=== PATIENT | female | born 1930 | race Caucasian/White ===

== ENCOUNTER 2017-01-29 20:27 | Inpatient (IN) | payer OTHER ==
[~2017-01-29] VITALS: Ht 162.6 cm; Wt 75.3 kg
[~2017-01-29 20:27] MED LIST: ADVAIR HFA120 INHAL2 IH; ADVAIR HFA120 INHALA IH; AMLODIPINE BESY10 MG PO; ASPIR-LOW81 MG PO; ASPIRIN BUFFER325 MG PO; ASPIRIN E.C.81 M1 PO; ASPIRIN81 M1 PO; DIABETA,MICRON2.5 MG PO; DOXYCYCLINE HY100 MG PO; DUONEB 2.5-0.5 M3 ML AEROSOL; Diabeta,Micronase PO; ELIQUIS2.5 MG PO; ENDOCET 5-3251 EACH PO; FEOSOL45 MG PO; FUROSEMIDE20 MG PO; FUROSEMIDE40 MG PO; GLUCAGEN1 MG IM/SC; GLUCOTROL XL5 MG PO; GLUCOTROL5 MG PO; GLYBURIDE5 MG PO; K-DUR10 MEQ PO; K-DUR20 MEQ PO; Keflex PO; LANTUS 3 M100 UNITS/ SC; LANTUS 3 M100 UNITS1 SC; LASIX40 MG PO; LITE COAT ASPI325 M1 PO; LOVENOX30 MG/0.3 SC; Lasix PO; Lopressor PO; MAG-AL PLUS SUS30 ML PO; METOPROLOL SUC100 MG PO; NORVASC10 MG PO; NOVOLOG MI100 UNIT/M SC; NOVOLOG PE100 UNITS/ SC; PANTOPRAZOLE SO40 MG PO; POTASSIUM CHLO20 ME1 PO; PRILOSEC20 MG PO; PriLOSEC PO; SENOKOT S,PE1 TABLET PO; SSD25GM TP; THERAGRAN1 TABLET PO; TYLENOL REGULA325 MG PO; VITAMIN D1000 INTUN PO; VITAMIN D2000 UNIT PO; Vicodin,Norco 5/325 PO; ZESTORETIC,P1 TABLE1 PO; Zestoretic,Prinzide PO
[2017-01-29 21:34] LABS: EOSINOPHIL (%) 0.1 % (0-5); HEMATOCRIT 29.7 % (36.0-46.0); IMMATURE GRANULOCYTE (%) 0.6 % (0.0-0.7); IMMATURE GRANULOCYTE COUNT 0.1 K/uL; INSTRUMENT ABS NEUTROPHIL CT 17.4 K/uL; LYMPHOCYTE COUNT 1.1 K/uL (1.0-2.8); MCH 26.6 PG (29.0-34.0); MCHC 31.6 G/DL (30.0-36.0); MCV 83.9 FL (83-99); MEAN PLAT.VOLUME 9.1 uM^3 (9.5-12.4); MONOCYTE (%) 4.9 % (3-12); NEUTROPHIL (%) 88.8 % (45-76); NEUTROPHIL COUNT 17.4 K/uL (1.8-6.4); PLATELET COUNT 294 K/uL (156-360); RBC DIS.WIDTH-SD 49.1 % (39-53); RED BLOOD COUNT 3.54 M/uL (3.80-5.20); WHITE BLOOD COUNT 19.6 K/uL (4.1-10.2)
[2017-01-29 21:41] LABS: CHLORIDE 97 mEq/L (99-109); POTASSIUM 4.4 mEq/L (3.7-5.4); SODIUM 131 mEq/L (136-147)
[2017-01-29 21:43] LABS: GLUCOSE 316 mg/dL (70-99)
[2017-01-29 21:44] LABS: ANION GAP 8 MEQ/L (2-14)
[2017-01-29 21:47] LABS: GFR ESTIMATE (CALCULATED) 35 mL/min/
[2017-01-29 21:48] LABS: UREA NITROGEN (BUN) 27 mg/dL (9-23)
[2017-01-29] MEDS ORDERED: FUROSEMIDE40 MG PO (22:03)
[2017-01-29] MEDS ORDERED: AMLODIPINE BESY10 MG PO (22:03)
[2017-01-29] MEDS ORDERED: LITE COAT ASPI325 M1 PO (22:03)
[2017-01-29] MEDS ORDERED: PRILOSEC OTC20 MG PO (22:04)
[2017-01-30 01:59] VITALS: BP 178/86
[2017-01-30 02:00] VITALS: BP 166/78
[2017-01-30 04:33] VITALS: BP 163/71
[2017-01-30 05:53] LABS: POINT-OF-CARE METER ID UU14162508
[2017-01-30 06:55] VITALS: BP 156/72
[2017-01-30 11:30] VITALS: BP 146/68
[2017-01-30 11:48] LABS: POINT-OF-CARE METER ID UU14162508
[2017-01-30 23:09] VITALS: BP 150/67
[2017-01-31 06:22] LABS: ANION GAP 6 MEQ/L (2-14); CHLORIDE 101 MEQ/L (99-109); GFR ESTIMATE (CALCULATED) 38 mL/min/; SAMPLE HEMOLYSIS CHECK 0; SAMPLE ICTERIC CHECK 0; SAMPLE LIPEMIA CHECK 0; UREA NITROGEN (BUN) 24 mg/dL (9-23)
[2017-01-31 06:29] LABS: EOSINOPHIL COUNT 0.2 K/uL (0-0.3); GLUCOSE 73 mg/dL (70-99); HEMATOCRIT 26.4 % (36.0-46.0); IMMATURE GRANULOCYTE (%) 0.5 % (0.0-0.7); INSTRUMENT ABS NEUTROPHIL CT 4.5 K/uL; LYMPHOCYTE COUNT 1.9 K/uL (1.0-2.8); MCHC 31.1 G/DL (30.0-36.0); MCV 86.8 FL (83-99); MEAN PLAT.VOLUME 9.2 uM^3 (9.5-12.4); MONOCYTE COUNT 0.8 K/uL (0-0.8); NEUTROPHIL (%) 60.9 % (45-76); NEUTROPHIL COUNT 4.5 K/uL (1.8-6.4); PLATELET COUNT 265 K/uL (156-360); RBC DIS.WIDTH-CV 16.1 % (11.8-14.6); RBC DIS.WIDTH-SD 50.8 % (39-53); RED BLOOD COUNT 3.04 M/uL (3.80-5.20); SODIUM 140 MEQ/L (136-147)
[2017-01-31 07:05] LABS: Estimated Average Glucose 217 mg/dL (70-123); HEMOGLOBIN A1c (GLYCOHEMOGLOB) 9.2 % HGB (Below 5.7)
[2017-01-31 07:06] LABS: WHITE BLOOD COUNT 7.4 K/uL (4.1-10.2)
[2017-01-31 07:58] VITALS: BP 168/72
[2017-01-31 12:08] LABS: POINT-OF-CARE METER ID UU14162508
[2017-01-31 16:11] VITALS: BP 174/77
[2017-01-31 16:31] LABS: POINT-OF-CARE METER ID UU14162508
[2017-02-01 00:01] VITALS: BP 165/77
[2017-02-01 07:38] LABS: POINT-OF-CARE METER ID UU14162508
[2017-02-01 07:58] VITALS: BP 158/70
[2017-02-01 11:21] LABS: POINT-OF-CARE METER ID UU14162508
[2017-02-01 12:00] VITALS: BP 183/77
[2017-02-01 15:48] VITALS: BP 191/80
[2017-02-01 15:52] LABS: POINT-OF-CARE METER ID UU14162508
[2017-02-01 23:41] VITALS: BP 173/73
[2017-02-01 23:42] LABS: POINT-OF-CARE METER ID UU14162508
[2017-02-02 07:12] VITALS: BP 166/74
[2017-02-02 12:12] LABS: POINT-OF-CARE METER ID UU14162508
[2017-02-02 16:19] LABS: POINT-OF-CARE METER ID UU14162508
[2017-02-02 16:27] VITALS: BP 176/70
[2017-02-02] MEDS ORDERED: VALSARTAN160 MG PO (20:02)
[2017-02-02] MEDS ORDERED: SANTYL30 GM TP (20:03)
[2017-02-02] MEDS ORDERED: KEFLEX500 MG PO (20:07)
[2017-02-02 23:28] VITALS: BP 169/83
[2017-02-03 07:00] VITALS: BP 176/82
[2017-02-03 10:55] VITALS: BP 172/84
== END 2017-02-03 12:55 | disposition home health service (06) | DRG 623 ==
LOC: EME → EDBD 20:27 → EME 20:27 → EDOF 01-30 00:02 → 2EAST 01-30 00:02
PROVIDERS: Emergency Medicine; Family Medicine Sports Medicine
DX: E11.628 Type 2 diabetes mellitus with other skin complications (principal); L03.115 Cellulitis of right lower limb; L03.116 Cellulitis of left lower limb; E11.622 Type 2 diabetes mellitus with other skin ulcer; L97.919 Non-pressure chronic ulcer of unspecified part of right lower leg with unspecified severity; L97.929 Non-pressure chronic ulcer of unspecified part of left lower leg with unspecified severity; L97.429 Non-pressure chronic ulcer of left heel and midfoot with unspecified severity; S90.32XA Contusion of left foot, initial encounter; L89.150 Pressure ulcer of sacral region, unstageable; I25.10 Atherosclerotic heart disease of native coronary artery without angina pectoris; I12.9 Hypertensive chronic kidney disease with stage 1 through stage 4 chronic kidney disease, or unspecified chronic kidney disease; N18.3 Chronic kidney disease, stage 3 (moderate); E11.22 Type 2 diabetes mellitus with diabetic chronic kidney disease; R11.2 Nausea with vomiting, unspecified; Z86.73 Personal history of transient ischemic attack (TIA), and cerebral infarction without residual deficits; I48.91 Unspecified atrial fibrillation; I83.018 Varicose veins of right lower extremity with ulcer other part of lower leg; I83.028 Varicose veins of left lower extremity with ulcer other part of lower leg; I83.024 Varicose veins of left lower extremity with ulcer of heel and midfoot; Z66 Do not resuscitate; Z51.5 Encounter for palliative care; K21.9 Gastro-esophageal reflux disease without esophagitis; E78.5 Hyperlipidemia, unspecified; D64.9 Anemia, unspecified; M19.90 Unspecified osteoarthritis, unspecified site; Z79.82 Long term (current) use of aspirin; Z91.19 Patient's noncompliance with other medical treatment and regimen; Z79.4 Long term (current) use of insulin; Z86.14 Personal history of Methicillin resistant Staphylococcus aureus infection; Z89.422 Acquired absence of other left toe(s)
CPT/HCPCS: 71020; 80048; 80202; 82948; 83036; 83605; 83880; 85025; 87040; 93005; 94799; 99281; 99284; J0690; J0696; J1650; J1815; J2405; J3370; J7050

== ENCOUNTER 2017-03-08 12:15 | Inpatient (IN) | payer OTHER ==
[2017-03-08] VITALS (8 sets, daily range): BP systolic 130–193; BP diastolic 57–100
[~2017-03-08] VITALS: Ht 162.6 cm; Wt 79.4 kg
[~2017-03-08 12:15] MED LIST changes: +KEFLEX500 MG PO; +PRILOSEC OTC20 MG PO; +SANTYL30 GM TP; +VALSARTAN160 MG PO
[2017-03-08 12:52] LABS: POINT-OF-CARE METER ID UU14100415
[2017-03-08 12:57] LABS: HEMATOCRIT 35.3 % (36.0-46.0); MCH 27.5 PG (29.0-34.0); MCHC 32.3 G/DL (30.0-36.0); MCV 85.3 FL (83-99); MEAN PLAT.VOLUME 9.9 uM^3 (9.5-12.4); PLATELET COUNT 217 K/uL (156-360); RBC DIS.WIDTH-CV 16.8 % (11.8-14.6); RBC DIS.WIDTH-SD 52.8 % (39-53); RED BLOOD COUNT 4.14 M/uL (3.80-5.20)
[2017-03-08 12:59] LABS: WHITE BLOOD COUNT 19.4 K/uL (4.1-10.2)
[2017-03-08 13:13] LABS: CHLORIDE 95 mEq/L (99-109); POTASSIUM 4.3 mEq/L (3.7-5.4); SODIUM 138 mEq/L (136-147)
[2017-03-08 13:15] LABS: GLUCOSE 257 mg/dL (70-99)
[2017-03-08 13:16] LABS: ANION GAP 14 MEQ/L (2-14)
[2017-03-08 13:18] LABS: ALKALINE PHOSPHATASE 123 IU/L (3-129)
[2017-03-08 13:19] LABS: GFR ESTIMATE (CALCULATED) 19 mL/min/
[2017-03-08 13:20] LABS: UREA NITROGEN (BUN) 52 mg/dL (9-23)
[2017-03-08 13:29] LABS: TROP-I INTERPRETATION POSITIVE; TROPONIN-I 0.89 ng/mL (0.0-0.30)
[2017-03-08 13:53] LABS: ADD MIUA? YES; BILIRUBIN NEGATIVE; BLOOD NEGATIVE; COLOR YELLOW ((YELLOW)); GLUCOSE (STRIP) >=500; KETONES NEGATIVE; LEUKOCYTES NEGATIVE; NITRITE NEGATIVE; PROTEIN (STRIP) >=500; SPECIFIC GRAVITY 1.013 (1.000-1.030)
[2017-03-08 14:11] LABS: BACTERIA NONE SEEN /HPF; EPITHELIAL CELLS RARE /HPF; MUCUS TRACE /LPF; RED BLOOD CELLS 0-5 /HPF (0-5); UCUL ADDED? NO; WHITE BLOOD CELLS 0-5 /HPF (0-5)
[2017-03-08 14:22] LABS: EOSINOPHIL (%) 0 % (0-5); IMMATURE GRANULOCYTE (%) 0.8 % (0.0-0.7); IMMATURE GRANULOCYTE COUNT 0.2 K/uL; INSTRUMENT ABS NEUTROPHIL CT 15.7 K/uL; LYMPHOCYTE COUNT 2.3 K/uL (1.0-2.8); MONOCYTE (%) 5.8 % (3-12); MONOCYTE COUNT 1.1 K/uL (0-0.8); NEUTROPHIL (%) 81.3 % (45-76); NEUTROPHIL COUNT 15.7 K/uL (1.8-6.4)
[2017-03-08 14:35] LABS: INTER. NORMALIZED RATIO 1.3; PROTHROMBIN TIME 13.5 (9.2-11.2); PTT 34.8 (25-32)
[2017-03-08] MEDS ORDERED: VALSARTAN160 MG PO (15:06)
[2017-03-08 21:24] LABS: POINT-OF-CARE METER ID UU13113781
[2017-03-09 00:29] VITALS: BP 130/88
[2017-03-09 01:56] LABS: TROP-I INTERPRETATION INDETERMINATE; TROPONIN-I 0.57 ng/mL (0.0-0.30)
[2017-03-09 04:48] VITALS: BP 158/83
[2017-03-09 05:38] LABS: TROP-I INTERPRETATION INDETERMINATE; TROPONIN-I 0.54 ng/mL (0.0-0.30)
[2017-03-09 06:15] LABS: HEMATOCRIT 32.4 % (36.0-46.0); MCH 27.9 PG (29.0-34.0); MCHC 32.1 G/DL (30.0-36.0); MCV 86.9 FL (83-99); MEAN PLAT.VOLUME 10.1 uM^3 (9.5-12.4); PLATELET COUNT 196 K/uL (156-360); RBC DIS.WIDTH-SD 54.5 % (39-53); RED BLOOD COUNT 3.73 M/uL (3.80-5.20)
[2017-03-09 06:16] LABS: WHITE BLOOD COUNT 11.6 K/uL (4.1-10.2)
[2017-03-09 07:00] LABS: ANION GAP 14 MEQ/L (2-14); CHLORIDE 98 MEQ/L (99-109); GFR ESTIMATE (CALCULATED) 19 mL/min/; HDL CHOLESTEROL 47 MG/DL (Desirable>=50); LDL CHOLESTEROL 100 mg/dL (Desirable<100); NON-HDL CHOLESTEROL 120 mg/dL (Desirable<160); POTASSIUM 3.5 MEQ/L (3.7-5.4); SAMPLE HEMOLYSIS CHECK 0; SAMPLE ICTERIC CHECK 0; SAMPLE LIPEMIA CHECK 0; SODIUM 140 MEQ/L (136-147); TOTAL CHOLESTEROL 167 mg/dL (Desirable<200); TRIGLYCERIDES 101 MG/DL (Normal: <150); UREA NITROGEN (BUN) 54 mg/dL (9-23)
[2017-03-09 07:01] LABS: GLUCOSE 102 mg/dL (70-99)
[2017-03-09 08:06] LABS: POINT-OF-CARE METER ID UU14174216
[2017-03-09 09:00] VITALS: BP 178/108
[2017-03-09 11:18] LABS: POINT-OF-CARE METER ID UU14174216
[2017-03-09 13:56] LABS: TROP-I INTERPRETATION INDETERMINATE; TROPONIN-I 0.36 ng/mL (0.0-0.30)
[2017-03-09 16:44] LABS: POINT-OF-CARE METER ID UU14174216
[2017-03-09 17:00] VITALS: BP 177/72
[2017-03-09 20:45] VITALS: BP 119/78; BP 179/78
[2017-03-09 23:37] VITALS: BP 151/84
[2017-03-10] VITALS (7 sets, daily range): BP systolic 137–193; BP diastolic 48–97
[2017-03-10 08:06] LABS: POINT-OF-CARE METER ID UU14174216; POINT-OF-CARE USER ID ENVKC36
[2017-03-10 08:08] LABS: EOSINOPHIL (%) 0.8 % (0-5); EOSINOPHIL COUNT 0.1 K/uL (0-0.3); HEMATOCRIT 32.1 % (36.0-46.0); IMMATURE GRANULOCYTE (%) 0.3 % (0.0-0.7); INSTRUMENT ABS NEUTROPHIL CT 4.3 K/uL; LYMPHOCYTE COUNT 2.3 K/uL (1.0-2.8); MCH 27.9 PG (29.0-34.0); MCHC 31.8 G/DL (30.0-36.0); MCV 87.7 FL (83-99); MEAN PLAT.VOLUME 10.1 uM^3 (9.5-12.4); MONOCYTE (%) 7.4 % (3-12); MONOCYTE COUNT 0.5 K/uL (0-0.8); NEUTROPHIL COUNT 4.3 K/uL (1.8-6.4); PLATELET COUNT 200 K/uL (156-360); RBC DIS.WIDTH-CV 16.8 % (11.8-14.6); RBC DIS.WIDTH-SD 54.7 % (39-53); RED BLOOD COUNT 3.66 M/uL (3.80-5.20)
[2017-03-10 08:14] LABS: WHITE BLOOD COUNT 7.2 K/uL (4.1-10.2)
[2017-03-10 08:22] LABS: ANION GAP 8 MEQ/L (2-14); CHLORIDE 104 MEQ/L (99-109); GFR ESTIMATE (CALCULATED) 21 mL/min/; SAMPLE HEMOLYSIS CHECK 0; SAMPLE ICTERIC CHECK 0; SAMPLE LIPEMIA CHECK 0; SODIUM 140 MEQ/L (136-147); UREA NITROGEN (BUN) 52 mg/dL (9-23)
[2017-03-10 08:27] LABS: GLUCOSE 71 mg/dL (70-99); POTASSIUM 4.4 MEQ/L (3.7-5.4)
[2017-03-10 12:12] LABS: POINT-OF-CARE METER ID UU13113781; POINT-OF-CARE USER ID ENVKC36
[2017-03-10 16:50] LABS: POINT-OF-CARE METER ID UU14174216; POINT-OF-CARE USER ID ENVKC36
[2017-03-10 21:25] LABS: POINT-OF-CARE METER ID UU14174216
[2017-03-11 00:24] VITALS: BP 192/76
[2017-03-11 04:14] VITALS: BP 184/83
[2017-03-11 06:24] LABS: HEMATOCRIT 33.1 % (36.0-46.0); MCH 26.8 PG (29.0-34.0); MCHC 31.1 G/DL (30.0-36.0); MEAN PLAT.VOLUME 10.2 uM^3 (9.5-12.4); PLATELET COUNT 180 K/uL (156-360); RBC DIS.WIDTH-CV 16.6 % (11.8-14.6); RBC DIS.WIDTH-SD 52.6 % (39-53); RED BLOOD COUNT 3.85 M/uL (3.80-5.20)
[2017-03-11 06:25] LABS: WHITE BLOOD COUNT 4.3 K/uL (4.1-10.2)
[2017-03-11 06:49] LABS: CHLORIDE 109 mEq/L (99-109); POTASSIUM 4.1 mEq/L (3.7-5.4); SODIUM 140 mEq/L (136-147)
[2017-03-11 06:52] LABS: ANION GAP 11 MEQ/L (2-14)
[2017-03-11 06:53] LABS: GLUCOSE 211 mg/dL (70-99)
[2017-03-11 06:55] LABS: GFR ESTIMATE (CALCULATED) 27 mL/min/
[2017-03-11 06:56] LABS: UREA NITROGEN (BUN) 41 mg/dL (9-23)
[2017-03-11 07:25] VITALS: BP 164/68
[2017-03-11 07:43] LABS: POINT-OF-CARE METER ID UU13113781
[2017-03-11 11:16] LABS: POINT-OF-CARE METER ID UU14174216
[2017-03-11 11:30] VITALS: BP 151/60
[2017-03-11 16:08] VITALS: BP 150/60
[2017-03-11 16:09] LABS: POINT-OF-CARE METER ID UU14174216
[2017-03-11 19:43] VITALS: BP 128/52
[2017-03-11 21:16] LABS: POINT-OF-CARE METER ID UU13113781
[2017-03-12] VITALS (8 sets, daily range): BP systolic 134–185; BP diastolic 56–98
[2017-03-12 07:33] LABS: POINT-OF-CARE METER ID UU13113781
[2017-03-12 11:24] LABS: POINT-OF-CARE METER ID UU14174216
[2017-03-12 16:28] LABS: POINT-OF-CARE METER ID UU14174216
[2017-03-12 20:40] LABS: POINT-OF-CARE METER ID UU14174216
[2017-03-13 03:52] VITALS: BP 160/64
[2017-03-13 06:19] LABS: EOSINOPHIL (%) 3.4 % (0-5); EOSINOPHIL COUNT 0.2 K/uL (0-0.3); HEMATOCRIT 32.9 % (36.0-46.0); IMMATURE GRANULOCYTE (%) 1.1 % (0.0-0.7); IMMATURE GRANULOCYTE COUNT 0.1 K/uL; INSTRUMENT ABS NEUTROPHIL CT 2.1 K/uL; LYMPHOCYTE COUNT 1.9 K/uL (1.0-2.8); MCH 27.7 PG (29.0-34.0); MCHC 31.6 G/DL (30.0-36.0); MCV 87.5 FL (83-99); MEAN PLAT.VOLUME 9.6 uM^3 (9.5-12.4); MONOCYTE (%) 9.7 % (3-12); MONOCYTE COUNT 0.5 K/uL (0-0.8); NEUTROPHIL (%) 44.8 % (45-76); NEUTROPHIL COUNT 2.1 K/uL (1.8-6.4); PLATELET COUNT 182 K/uL (156-360); RBC DIS.WIDTH-CV 16.5 % (11.8-14.6); RBC DIS.WIDTH-SD 52.8 % (39-53); RED BLOOD COUNT 3.76 M/uL (3.80-5.20); WHITE BLOOD COUNT 4.8 K/uL (4.1-10.2)
[2017-03-13 06:50] LABS: ANION GAP 5 MEQ/L (2-14); CHLORIDE 109 MEQ/L (99-109); GFR ESTIMATE (CALCULATED) 32 mL/min/; POTASSIUM 4.4 MEQ/L (3.7-5.4); SAMPLE HEMOLYSIS CHECK 0; SAMPLE ICTERIC CHECK 0; SAMPLE LIPEMIA CHECK 0; SODIUM 140 MEQ/L (136-147); UREA NITROGEN (BUN) 29 mg/dL (9-23)
[2017-03-13 06:52] LABS: GLUCOSE 77 mg/dL (70-99)
[2017-03-13 07:12] VITALS: BP 134/68
[2017-03-13 07:40] LABS: POINT-OF-CARE METER ID UU14174216
[2017-03-13 08:22] LABS: POINT-OF-CARE METER ID UU14174216
[2017-03-13 11:24] LABS: POINT-OF-CARE METER ID UU14174216
[2017-03-13 12:12] VITALS: BP 167/76
[2017-03-13 16:12] LABS: POINT-OF-CARE METER ID UU14174216
[2017-03-13 16:19] VITALS: BP 161/70
[2017-03-13 20:18] VITALS: BP 150/62
[2017-03-13 21:35] LABS: POINT-OF-CARE METER ID UU13113781
[2017-03-13 23:45] VITALS: BP 140/66
[2017-03-14 04:23] VITALS: BP 162/70
[2017-03-14 07:15] VITALS: BP 149/72
[2017-03-14 11:31] LABS: POINT-OF-CARE METER ID UU13113781
[2017-03-14 11:33] VITALS: BP 174/79
[2017-03-14 16:51] VITALS: BP 169/78
[2017-03-14 20:30] VITALS: BP 170/77
[2017-03-14 20:46] LABS: POINT-OF-CARE USER ID ENVMNS
[2017-03-14 22:00] VITALS: BP 115/84
[2017-03-15] MEDS ORDERED: AMLODIPINE BESY10 MG PO (10:13)
[2017-03-15] MEDS ORDERED: NITROSTAT0.4 MG SL (10:13)
[2017-03-15] MEDS ORDERED: APRESOLINE50 MG PO (10:13)
[2017-03-15] MEDS ORDERED: TYLENOL REGULA325 MG PO (10:14)
[2017-03-15] MEDS ORDERED: ASPIR-LOW81 MG PO (10:14)
[2017-03-15] MEDS ORDERED: KLOR-CON M1010 MEQ PO (10:14)
[2017-03-15] MEDS ORDERED: VALSARTAN160 MG PO (10:14)
[2017-03-15 11:18] VITALS: BP 125/58
== END 2017-03-15 17:35 | DRG 280 ==
LOC: EME 12:15 → 4EAST 15:25 → EDOF 15:25 → 4EAST 19:43 → 5EAST 03-14 21:57
PROVIDERS: Emergency Medicine; Family Medicine Sports Medicine
DX: I21.4 Non-ST elevation (NSTEMI) myocardial infarction (principal); I48.0 Paroxysmal atrial fibrillation; I25.10 Atherosclerotic heart disease of native coronary artery without angina pectoris; E11.22 Type 2 diabetes mellitus with diabetic chronic kidney disease; E86.0 Dehydration; N18.3 Chronic kidney disease, stage 3 (moderate); I13.0 Hypertensive heart and chronic kidney disease with heart failure and stage 1 through stage 4 chronic kidney disease, or unspecified chronic kidney disease; Z86.73 Personal history of transient ischemic attack (TIA), and cerebral infarction without residual deficits; K21.9 Gastro-esophageal reflux disease without esophagitis; Z89.422 Acquired absence of other left toe(s); Z91.19 Patient's noncompliance with other medical treatment and regimen; I87.8 Other specified disorders of veins; N17.9 Acute kidney failure, unspecified; E78.5 Hyperlipidemia, unspecified; I50.9 Heart failure, unspecified; D64.9 Anemia, unspecified; R09.02 Hypoxemia; M19.90 Unspecified osteoarthritis, unspecified site; I08.3 Combined rheumatic disorders of mitral, aortic and tricuspid valves; I50.33 Acute on chronic diastolic (congestive) heart failure
CPT/HCPCS: 71020; 74230; 76705; 80048; 80053; 80061; 81003; 82948; 83605; 83880; 84484; 85025; 85027; 85610; 85730; 92526 GN; 92611 GN; 93005; 93306; 94799; 99281; 99285; J0360; J1644; J1815; J2405; J3480; J7030

== ENCOUNTER 2017-08-26 21:43 | Inpatient (IN) | payer OTHER ==
[~2017-08-26] VITALS: Ht 160 cm; Wt 75.8 kg
[~2017-08-26 21:43] MED LIST changes: +APRESOLINE50 MG PO; +KLOR-CON M1010 MEQ PO; +NITROSTAT0.4 MG SL
[2017-08-26 23:33] LABS: CARBON DIOXIDE (BICARBONATE) 35.5 MEQ/L (20-31)
[2017-08-26 23:34] LABS: EOSINOPHIL (%) 0 % (0-5); HEMATOCRIT 28.1 % (36.0-46.0); IMMATURE GRANULOCYTE (%) 0.4 % (0.0-0.7); IMMATURE GRANULOCYTE COUNT 0.1 K/uL; INSTRUMENT ABS NEUTROPHIL CT 14.3 K/uL; LYMPHOCYTE COUNT 0.6 K/uL (1.0-2.8); MCH 26.8 PG (29.0-34.0); MCHC 31.3 G/DL (30.0-36.0); MCV 85.7 FL (83-99); MEAN PLAT.VOLUME 9.1 uM^3 (9.5-12.4); MONOCYTE (%) 7.3 % (3-12); MONOCYTE COUNT 1.2 K/uL (0-0.8); NEUTROPHIL (%) 88.4 % (45-76); NEUTROPHIL COUNT 14.3 K/uL (1.8-6.4); PLATELET COUNT 419 K/uL (156-360); RBC DIS.WIDTH-CV 14.9 % (11.8-14.6); RBC DIS.WIDTH-SD 46.7 % (39-53); RED BLOOD COUNT 3.28 M/uL (3.80-5.20); WHITE BLOOD COUNT 16.2 K/uL (4.1-10.2)
[2017-08-26 23:38] LABS: INTER. NORMALIZED RATIO 1.5; PROTHROMBIN TIME 17.1 SEC (10.2-12.9)
[2017-08-26 23:41] LABS: PTT 28.2 SEC (25-37)
[2017-08-26 23:54] LABS: CHLORIDE 96 mEq/L (99-109); POTASSIUM 4.5 mEq/L (3.7-5.4); SODIUM 135 mEq/L (136-147)
[2017-08-26 23:57] LABS: GLUCOSE 224 mg/dL (70-99)
[2017-08-26 23:58] LABS: ANION GAP 11 MEQ/L (2-14); TOTAL BILIRUBIN 0.7 mg/dL (0.0-1.0)
[2017-08-27] VITALS (7 sets, daily range): BP systolic 116–141; BP diastolic 56–66
[2017-08-27] LABS: ALKALINE PHOSPHATASE 216 IU/L (3-129); GFR ESTIMATE (CALCULATED) 30 mL/min/
[2017-08-27 00:01] LABS: UREA NITROGEN (BUN) 26 mg/dL (9-23)
[2017-08-27 00:03] LABS: LIPASE 3 U/L (1.0-51.0)
[2017-08-27 07:18] LABS: Estimated Average Glucose 220 mg/dL (70-123)
[2017-08-27 07:24] LABS: EOSINOPHIL (%) 0 % (0-5); HEMATOCRIT 22.9 % (36.0-46.0); IMMATURE GRANULOCYTE (%) 0.5 % (0.0-0.7); IMMATURE GRANULOCYTE COUNT 0.1 K/uL; INSTRUMENT ABS NEUTROPHIL CT 13.4 K/uL; LYMPHOCYTE COUNT 1.6 K/uL (1.0-2.8); MCH 27.1 PG (29.0-34.0); MCHC 31.9 G/DL (30.0-36.0); MCV 85.1 FL (83-99); MEAN PLAT.VOLUME 9.4 uM^3 (9.5-12.4); MONOCYTE COUNT 1.3 K/uL (0-0.8); NEUTROPHIL (%) 81.5 % (45-76); NEUTROPHIL COUNT 13.4 K/uL (1.8-6.4); PLATELET COUNT 341 K/uL (156-360); RBC DIS.WIDTH-CV 15.2 % (11.8-14.6); RBC DIS.WIDTH-SD 46.5 % (39-53); RED BLOOD COUNT 2.69 M/uL (3.80-5.20); WHITE BLOOD COUNT 16.4 K/uL (4.1-10.2)
[2017-08-27 07:51] LABS: ANION GAP 6 MEQ/L (2-14); CHLORIDE 102 MEQ/L (99-109); SAMPLE HEMOLYSIS CHECK 0; SAMPLE ICTERIC CHECK 0; SAMPLE LIPEMIA CHECK 0; SODIUM 134 MEQ/L (136-147)
[2017-08-27 07:56] LABS: GFR ESTIMATE (CALCULATED) 41 mL/min/; GLUCOSE 176 mg/dL (70-99); UREA NITROGEN (BUN) 22 mg/dL (9-23)
[2017-08-27 08:24] LABS: HEMOGLOBIN A1c (GLYCOHEMOGLOB) 9.3 % HGB (Below 5.7)
[2017-08-27 09:29] LABS: POINT-OF-CARE METER ID UU13113702
[2017-08-27 11:44] LABS: POINT-OF-CARE METER ID UU13113702
[2017-08-27 16:44] LABS: POINT-OF-CARE METER ID UU14188577
[2017-08-28 00:03] LABS: POINT-OF-CARE METER ID UU14117124
[2017-08-28 06:28] LABS: POINT-OF-CARE METER ID UU14208753
[2017-08-28 06:50] LABS: EOSINOPHIL (%) 1.1 % (0-5); EOSINOPHIL COUNT 0.2 K/uL (0-0.3); HEMATOCRIT 26.7 % (36.0-46.0); IMMATURE GRANULOCYTE (%) 0.7 % (0.0-0.7); IMMATURE GRANULOCYTE COUNT 0.1 K/uL; INSTRUMENT ABS NEUTROPHIL CT 10.6 K/uL; LYMPHOCYTE COUNT 1.6 K/uL (1.0-2.8); MCH 27.9 PG (29.0-34.0); MCHC 31.8 G/DL (30.0-36.0); MCV 87.5 FL (83-99); MEAN PLAT.VOLUME 9.4 uM^3 (9.5-12.4); MONOCYTE (%) 6.4 % (3-12); MONOCYTE COUNT 0.9 K/uL (0-0.8); NEUTROPHIL (%) 79.4 % (45-76); NEUTROPHIL COUNT 10.6 K/uL (1.8-6.4); PLATELET COUNT 323 K/uL (156-360); RBC DIS.WIDTH-CV 15.3 % (11.8-14.6); RBC DIS.WIDTH-SD 48.7 % (39-53); RED BLOOD COUNT 3.05 M/uL (3.80-5.20); WHITE BLOOD COUNT 13.4 K/uL (4.1-10.2)
[2017-08-28 07:46] LABS: ERTH.SED.RATE 77 MM/HR (0-30)
[2017-08-28 08:11] VITALS: BP 141/67
[2017-08-28 10:57] LABS: ANION GAP 10 MEQ/L (2-14); CHLORIDE 101 MEQ/L (99-109); GFR ESTIMATE (CALCULATED) 35 mL/min/; GLUCOSE 105 mg/dL (70-99); SAMPLE HEMOLYSIS CHECK 0; SAMPLE ICTERIC CHECK 0; SAMPLE LIPEMIA CHECK 0; SODIUM 137 MEQ/L (136-147); UREA NITROGEN (BUN) 25 mg/dL (9-23)
[2017-08-28 10:58] LABS: C-REACTIVE PROTEIN 254.4 MG/L (0-10)
[2017-08-28 11:41] VITALS: BP 158/70
[2017-08-28 12:02] LABS: POINT-OF-CARE METER ID UU14117124
[2017-08-28 13:44] LABS: POINT-OF-CARE METER ID UU13113675
[2017-08-28 15:45] VITALS: BP 131/67
[2017-08-28 16:46] LABS: POINT-OF-CARE METER ID UU14208753
[2017-08-28 19:31] VITALS: BP 144/63
[2017-08-28 21:22] LABS: POINT-OF-CARE METER ID UU14208753
[2017-08-28 23:28] VITALS: BP 136/61
[2017-08-29 04:04] VITALS: BP 127/60
[2017-08-29 06:14] LABS: POINT-OF-CARE METER ID UU14117124
[2017-08-29 07:59] VITALS: BP 141/66
[2017-08-29 11:35] LABS: POINT-OF-CARE METER ID UU14208753
[2017-08-29 12:09] VITALS: BP 142/66
[2017-08-29] MEDS ORDERED: VALSARTAN160 MG PO (12:10)
[2017-08-29] MEDS ORDERED: FUROSEMIDE40 MG PO (12:11)
[2017-08-29] MEDS ORDERED: METOPROLOL SUC100 MG PO (12:11)
[2017-08-29] MEDS ORDERED: LANTUS 3 M100 UNITS1 SC (12:12)
[2017-08-29] MEDS ORDERED: POTASSIUM20 MEQ/11 PO (12:13)
[2017-08-29] MEDS ORDERED: PANTOPRAZOLE SO40 MG PO (12:14)
[2017-08-29] MEDS ORDERED: FERROUS SULFATE (12:14)
[2017-08-29] MEDS ORDERED: ERGOCALCIFEROL (12:15)
[2017-08-29] MEDS ORDERED: FEOSOL45 MG PO (12:15)
[2017-08-29] MEDS ORDERED: ADVAIR 250/501 DISK IH (12:16)
[2017-08-29] MEDS ORDERED: ASPIRIN325 MG PO (12:16)
[2017-08-29] MEDS ORDERED: SIMVASTATIN20 MG PO (12:16)
[2017-08-29 15:58] VITALS: BP 138/85
[2017-08-29 16:29] LABS: POINT-OF-CARE METER ID UU14149397
[2017-08-29 19:28] VITALS: BP 153/72
[2017-08-29 21:18] LABS: POINT-OF-CARE METER ID UU14117124
[2017-08-29 23:24] VITALS: BP 178/79
[2017-08-30 03:16] VITALS: BP 150/82
[2017-08-30 06:24] LABS: POINT-OF-CARE METER ID UU14208753
[2017-08-30 07:09] LABS: EOSINOPHIL COUNT 0.2 K/uL (0-0.3); HEMATOCRIT 28.8 % (36.0-46.0); IMMATURE GRANULOCYTE (%) 0.4 % (0.0-0.7); INSTRUMENT ABS NEUTROPHIL CT 4.7 K/uL; LYMPHOCYTE COUNT 1.9 K/uL (1.0-2.8); MCH 27.1 PG (29.0-34.0); MCHC 30.9 G/DL (30.0-36.0); MCV 87.8 FL (83-99); MEAN PLAT.VOLUME 9.2 uM^3 (9.5-12.4); MONOCYTE COUNT 0.7 K/uL (0-0.8); NEUTROPHIL (%) 63.4 % (45-76); NEUTROPHIL COUNT 4.7 K/uL (1.8-6.4); PLATELET COUNT 314 K/uL (156-360); RBC DIS.WIDTH-CV 15.3 % (11.8-14.6); RBC DIS.WIDTH-SD 49.2 % (39-53); RED BLOOD COUNT 3.28 M/uL (3.80-5.20); WHITE BLOOD COUNT 7.5 K/uL (4.1-10.2)
[2017-08-30 07:48] LABS: ANION GAP 8 MEQ/L (2-14); CHLORIDE 104 MEQ/L (99-109); GFR ESTIMATE (CALCULATED) 32 mL/min/; GLUCOSE 125 mg/dL (70-99); SAMPLE HEMOLYSIS CHECK 0; SAMPLE ICTERIC CHECK 0; SAMPLE LIPEMIA CHECK 0; SODIUM 137 MEQ/L (136-147); UREA NITROGEN (BUN) 26 mg/dL (9-23)
[2017-08-30 08:37] VITALS: BP 173/79
[2017-08-30 12:05] LABS: POINT-OF-CARE METER ID UU14149397
[2017-08-30 12:12] VITALS: BP 138/80
[2017-08-30 16:51] LABS: POINT-OF-CARE METER ID UU14149397
[2017-08-30 19:28] VITALS: BP 171/74
[2017-08-30 21:32] LABS: POINT-OF-CARE METER ID UU14149397
[2017-08-30 23:32] VITALS: BP 166/84
[2017-08-31 04:39] VITALS: BP 192/74
[2017-08-31 06:32] LABS: POINT-OF-CARE METER ID UU13113712
[2017-08-31 07:34] VITALS: BP 164/80
[2017-08-31 10:42] VITALS: BP 188/80
[2017-08-31 16:08] LABS: POINT-OF-CARE METER ID UU14208753
[2017-08-31] MEDS ORDERED: TYLENOL REGULA325 MG PO (18:31)
[2017-08-31] MEDS ORDERED: FUROSEMIDE40 MG PO (18:38)
[2017-08-31] MEDS ORDERED: SANTYL30 GM TP (18:42)
[2017-08-31] MEDS ORDERED: ENDOCET 5-3251 EACH PO (18:43)
[2017-08-31] MEDS ORDERED: AUGMENTIN50 MG/ML PO (18:47)
[2017-08-31 21:32] LABS: POINT-OF-CARE METER ID UU14208753
[2017-08-31 23:19] VITALS: BP 183/82
[2017-09-01 06:28] LABS: POINT-OF-CARE METER ID UU14117124
[2017-09-01 08:15] VITALS: BP 190/98
[2017-09-01 11:19] LABS: POINT-OF-CARE METER ID UU14208753
[2017-09-01 15:33] VITALS: BP 140/97
[2017-09-01 16:18] LABS: POINT-OF-CARE METER ID UU14188577
[2017-09-01 21:49] LABS: POINT-OF-CARE METER ID UU14117124
[2017-09-02] VITALS: BP 198/91
[2017-09-02 06:33] LABS: POINT-OF-CARE METER ID UU14117124
[2017-09-02 07:21] VITALS: BP 190/94
[2017-09-02] MEDS ORDERED: HYOSCYAMINE0.125 M2 PO (10:27)
[2017-09-02] MEDS ORDERED: LORAZEPAM0.5 MG PO (10:27)
[2017-09-02] MEDS ORDERED: MORPHINE CON20 MG/M1 PO (10:27)
[2017-09-02 11:58] LABS: POINT-OF-CARE METER ID UU14188577
== END 2017-09-02 14:17 | disposition hospice, home (50) | DRG 628 ==
LOC: EME 21:43 → 3EAST 08-27 01:45 → EDOF 08-27 01:45 → ENRESERV 08-27 02:10 → 3EAST 08-27 13:19
PROVIDERS: Emergency Medicine; Family Medicine Sports Medicine
PROC: 30233N1 Transfusion of Nonautologous Red Blood Cells into Peripheral Vein, Percutaneous Approach (ICD-10-PCS; 2017-08-27)
PROC: 0QBM0ZZ Excision of Left Tarsal, Open Approach (ICD-10-PCS; principal; 2017-08-28)
DX: E11.69 Type 2 diabetes mellitus with other specified complication (principal); M86.9 Osteomyelitis, unspecified; E11.621 Type 2 diabetes mellitus with foot ulcer; S92.002B Unspecified fracture of left calcaneus, initial encounter for open fracture; W01.0XXA Fall on same level from slipping, tripping and stumbling without subsequent striking against object, initial encounter; Y92.012 Bathroom of single-family (private) house as the place of occurrence of the external cause; L89.624 Pressure ulcer of left heel, stage 4; L89.159 Pressure ulcer of sacral region, unspecified stage; L97.529 Non-pressure chronic ulcer of other part of left foot with unspecified severity; L02.416 Cutaneous abscess of left lower limb; L03.116 Cellulitis of left lower limb; L97.424 Non-pressure chronic ulcer of left heel and midfoot with necrosis of bone; B95.1 Streptococcus, group B, as the cause of diseases classified elsewhere; B95.61 Methicillin susceptible Staphylococcus aureus infection as the cause of diseases classified elsewhere; R78.81 Bacteremia; B96.89 Other specified bacterial agents as the cause of diseases classified elsewhere; I13.0 Hypertensive heart and chronic kidney disease with heart failure and stage 1 through stage 4 chronic kidney disease, or unspecified chronic kidney disease; N18.3 Chronic kidney disease, stage 3 (moderate); E11.22 Type 2 diabetes mellitus with diabetic chronic kidney disease; I50.9 Heart failure, unspecified; Z91.19 Patient's noncompliance with other medical treatment and regimen; E11.51 Type 2 diabetes mellitus with diabetic peripheral angiopathy without gangrene; E11.65 Type 2 diabetes mellitus with hyperglycemia; E11.42 Type 2 diabetes mellitus with diabetic polyneuropathy; I87.8 Other specified disorders of veins; I87.2 Venous insufficiency (chronic) (peripheral); I25.10 Atherosclerotic heart disease of native coronary artery without angina pectoris; K21.9 Gastro-esophageal reflux disease without esophagitis; D63.8 Anemia in other chronic diseases classified elsewhere; I48.0 Paroxysmal atrial fibrillation; Z66 Do not resuscitate; F41.9 Anxiety disorder, unspecified; E78.5 Hyperlipidemia, unspecified; M19.90 Unspecified osteoarthritis, unspecified site; Z79.4 Long term (current) use of insulin; Z86.73 Personal history of transient ischemic attack (TIA), and cerebral infarction without residual deficits; Z79.82 Long term (current) use of aspirin; Z82.3 Family history of stroke; Z82.49 Family history of ischemic heart disease and other diseases of the circulatory system; Z83.3 Family history of diabetes mellitus; Z90.710 Acquired absence of both cervix and uterus
CPT/HCPCS: 71010; 73630; 73700; 80048; 80053; 82010; 82272; 82803; 82948; 83036; 83605; 83690; 83880; 85025; 85027; 85610; 85651; 85730; 86140; 86850; 86860; 86870; 86880; 86900; 86901; 86905; 86920; 87040; 87070; 87075; 87076; 87077; 87147; 87185; 87186; 87205; 93971; 94799; 99281; 99285; A6260; J0330; J0690; J1170; J1650; J1815; J1940; J2405; J2543; J3010; J3370; J7050; P9016; S0030